=== PATIENT | male | born 1960 | race Caucasian/White ===

== ENCOUNTER 2020-06-23 13:12 | Emergency (ER) | payer SELFPAY ==
[~2020-06-23] VITALS: Ht 182.9 cm; Wt 71.2 kg
--- NOTE | 2020-06-23 13:12 | NUR ---
PT [id number], FOUND LAYING DOWN IN A VACANT LOT ALTERED W/ EMPTY SEROQUEL BOTTLE. PT IS AAOX0, NOT IN RESPIRATORY DISTRESS, HOOKED TO COOK HELPER PASTRY, KEPT RESTED AND COMFORTABLE. WILL CONTINUE TO MONITOR.
--- NOTE | 2020-06-23 13:18 | NUR ---
SEEN AND EXAMINED BY .
--- NOTE | 2020-06-23 13:27 | NUR ---
ER PHLEB AT BEDSIDE FOR BLOOD DRAW.
[2020-06-23 13:42] LABS: BASOPHILS % (AUTO) 0.6 % (0.0-2.0); EOSINOPHILS % (AUTO) 2.2 % (0.0-6.0); HEMATOCRIT 36 % (39-51); HEMOGLOBIN 12.1 g/dL (13.5-17.5); LYMPHOCYTES # (AUTO) 1.4 /CMM (0.8-4.8); MEAN CORPUSCULAR HGB CONC 34 g/dl (31.0-36.0); MEAN CORPUSCULAR VOLUME 92 fL (80-96); MONOCYTES # (AUTO) 0.7 /CMM (0.1-1.30); MONOCYTES % (AUTO) 11.7 % (2.0-12.0); NEUTROPHILS # (AUTO) 3.7 /CMM (1.8-8.9); NEUTROPHILS % (AUTO) 61.5 % (43.0-81.0); PLATELET COUNT (AUTO) 304 /CMM (150-450); WHITE BLOOD COUNT (AUTO) 5.9 K/uL (4.3-11.0)
--- NOTE | 2020-06-23 13:42 | NUR ---
CALLED POISON CONTROL: ADVISE: INTUBATE IF NEEDED FOR REPIRATORY DEPRESSION. SEROQUEL CAN CAUSE HYPOTENSION, GIVE FLUIDS IF PATIENT BECOMES HYPOTENSIVE. RECHECK EKG AFTER 4 HOURS. BE ON THE LOOKOUT FOR QTc CHANGES IN THE EKG AND REPLACE ELECTROLYTES POTASSIUM, CALCIUM, MAGNESIUM. IF PATIENT DEVELOPS SEIZURES TO TREAT WITH BENZO'S. CHECK ON LABS, ACETEMENOPHEN, ALCOHOL, TOX.
[2020-06-23 13:49] LABS: CALCIUM, SERUM 8.6 mg/dL (8.5-10.1); CARBON DIOXIDE 28 mmol/L (21-32); CHLORIDE 100 mmol/L (98-107); CREATININE 0.7 mg/dL (0.6-1.3); GLUCOSE 110 mg/dL (74-106); POTASSIUM 3.3 mmol/L (3.5-5.1); SODIUM SERUM 137 mmol/L (136-145); UREA NITROGEN, BLOOD 14 mg/dL (7-18)
[2020-06-23 13:55] LABS: ALANINE AMINOTRANSFERASE 19 U/L (12-78); ALBUMIN 3.2 g/dL (3.4-5.0); ALCOHOL, BLOOD < 3 mg/dL (0-0); ALKALINE PHOSPHATASE 73 U/L (46-116); ASPARTATE AMINOTRANSFERASE 17 U/L (15-37); BILIRUBIN,DIRECT 0.1 mg/dL (0.0-0.2); BILIRUBIN,TOTAL 0.2 mg/dL (0.2-1.0); TOTAL PROTEIN, SERUM 6.6 g/dL (6.4-8.2)
[2020-06-23 13:56] LABS: ACETAMINOPHEN 0 ug/ml (10-30)
[2020-06-23 15:38] LABS: BILIRUBIN,URINE Negative (NEGATIVE); COLOR,URINE YELLOW (YELLOW); PH,URINE 6.5 (5.0-8.0); PROTEIN,URINE Negative (NEGATIVE); UGLUCOSE Negative (NEGATIVE); UROBILINOGEN,URINE 0.2 EU/dL (0.2)
[2020-06-23 15:39] LABS: LEUKOCYTE ESTERASE ,URINE Negative (NEGATIVE); NITRITE, URINE Negative (NEGATIVE)
[2020-06-23] MEDS ORDERED: POTASSIUM CL. PREMIX PERIPHER. 50 ML IV SCH (16:00)
[2020-06-23] MEDS ORDERED: BUPR150T5 PO (16:40)
[2020-06-23] MEDS ORDERED: QUET50TA PO (16:40)
[2020-06-23] MEDS ORDERED: POTASSIUM CL. PREMIX PERIPHER. 200 ML ONE (16:43)
--- NOTE | 2020-06-23 16:50 | NUR ---
ASSESSED PT ON BED AWAKE, AAOX4, NOT IN RESPIRATORY DISTRESS. PT STATED HE DOESNT WANT TO STAY IN THE HOSPITAL AND HE IS NOT SUICIDAL. AWARE.
--- NOTE | 2020-06-23 16:54 | NUR ---
IV removed. Catheter intact and site benign. Pressure and 4x4 applied to site. No bleeding noted.
--- NOTE | 2020-06-23 16:55 | NUR ---
Patient does not wish to proceed with medical care recommended by Dr. QUINTEROS. Patient given information related to possible complications, up to and including , which could occur as a result of leaving the hospital at this time. Patient verbalizes understanding of risks involved due to leaving against medical advice. Patient has signed AMA form.
[2020-06-23 16:59] VITALS: BP 137/88
== END 2020-06-23 17:00 | disposition left against medical advice (07) ==
LOC: ER 13:27
DX: T43.591A Poisoning by other antipsychotics and neuroleptics, accidental (unintentional), initial encounter (principal); E87.6 Hypokalemia; D64.9 Anemia, unspecified; G93.40 Encephalopathy, unspecified; R40.4 Transient alteration of awareness; Z79.899 Other long term (current) drug therapy; Y92.89 Other specified places as the place of occurrence of the external cause
CPT/HCPCS: 36415; 70450; 71045; 72125; 80048; 80076; 80299; 80307; 80320; 81003; 82962; 85025; 93005; 99285; J3480; J7040; G0480